=== PATIENT | female | born 1970 | race Caucasian/White ===

== ENCOUNTER 2016-09-05 13:26 | Emergency (ER) | payer MEDICAID ==
[~2016-09-05] VITALS: Ht 165.1 cm; Wt 99.0 kg
[~2016-09-05 13:26] MED LIST: denies meds
[2016-09-05 13:45] VITALS: Ht 165.1 cm; Wt 99.0 kg
[2016-09-05] MEDS ORDERED: KETOROLAC 60 MG INJ IM STA (15:23)
--- NOTE | 2016-09-05 16:54 | RADRPT ---
PROCEDURE: XR Cervical Spine. CLINICAL INDICATION: Neck pain TECHNIQUE: AP, lateral, and odontoid views of the cervical spine were obtained. COMPARISON: None available FINDINGS: Mineralization is within normal limits. No fracture or osseous lesion is identified. Vertebral bod ies are normal in height. Cervical lordosis is preserved. No vertebral subluxation is seen. Inter vertebral discs are normal in height. Facet joints appear maintained. Prevertebral soft tissues, p redental space and atlantoaxial joint are unremarkable. RPTAT:HJJR IMPRESSION: Normal three-view cervical spine series. Physician Avery Date Time Electronically viewed and signed by Physician Avery on 09/05/2016 16:54 /
--- NOTE | 2016-09-05 16:55 | RADRPT ---
PROCEDURE: XR left shoulder. CLINICAL INDICATION: Left shoulder pain TECHNIQUE: Three views of the left shoulder were performed. COMPARISON: None available. FINDINGS: There is normal mineralization and alignment. No fracture or osseous lesion is identified. The joint spaces are preserved. Soft tissue calcification adjacent to the humeral head is approximately 2 cm in greatest dimension and is concerning for a calcific bursitis or possibly calcific tendinosis RPTAT:HJJR IMPRESSION: Calcific bursitis or tendinosis of the left shoulder without evidence of osseous abnormality. Physician Avery Date Time Electronically viewed and signed by Physician Avery on 09/05/2016 16:55 /
[2016-09-05] MEDS ORDERED: IBUP-1542 PO (16:58)
[2016-09-05] MEDS ORDERED: TRAM50TA2 PO (16:58)
--- NOTE | 2016-09-05 17:04 | ERD ---
ER Documentation Chief Complaint Date/Time DATE: 09/05/16 TIME: 17:02 Chief Complaint LEFT SHOULDER PAIN RADIATING DOWN ARM X 3 DAYS, DENIES TRAUMA AND FALL HPI This 45 year female complains of left shoulder pain worsening over last 3 days. She has a history of intermittent left shoulder pain weakness, bowel or bladder incontinence, headaches or fevers. Denies chest pain or shortness of breath. ROS All systems reviewed and are negative except as per history of present illness. Medications Home Meds Active Scripts Tramadol HCl (Tramadol HCl) 50 Mg Tablet, 50 MG PO Q4 Y for PAIN, #20 TAB Prov:ZULAY CARDOSO MD 09/05/16 Ibuprofen* (Motrin*) 600 Mg Tab, 600 MG PO Q6, #30 TAB Prov:ZULAY CARDOSO MD 09/05/16 Reported Medications [denies meds] No Conflict Check 10/04/10 Allergies Allergies: Coded Allergies: No Known Allergies (Verified Allergy, Mild, 10/06/10) PMhx/Soc History of Surgery: No Anesthesia Reaction: No Hx Neurological Disorder: No Hx Respiratory Disorders: No Hx Cardiac Disorders: No Hx Psychiatric Problems: No Hx Miscellaneous Medical Probl: No Hx Alcohol Use: No Hx Substance Use: No Hx Tobacco Use: No Physical Exam Vitals Vital Signs Date Time Temp Pulse Resp B/P Pulse Ox O2 Delivery O2 Flow Rate FiO2 09/05/16 13:45 98.8 78 18 140/60 100 Physical Exam Const: [] Alert, [id number]. Head: Atraumatic Eyes: Normal Conjunctiva ENT: Normal External Ears, Nose and Mouth. Neck: Full range of motion..~ No meningismus.. Mild cervical paraspinous muscles. No midline tenderness or deformities Resp: Clear to auscultation bilaterally Cardio: Regular rate and rhythm, no murmurs Abd: Soft, non tender, non distended. Normal bowel sounds Skin: No petechiae or rashes Back: No midline or flank tenderness Ext: No cyanosis, or edema. There is tenderness of the left rotator cuff without erythema, warmth, deformities. Left upper extremity is neurovascular intact. Pulses are 2+ distally Neur: Awake and alert Psych: Normal Mood and Affect Results 24 hrs Current Medications Medications (Trade) Dose Ordered Sig/Elbert Route PRN Reason Start Time Stop Time Status Last Admin Dose Admin Ketorolac Tromethamine (Toradol) 60 mg ONCE STAT IM 09/05/16 15:23 09/05/16 15:24 DC 09/05/16 15:51 Procedures/MDM X-ray C spine 3V Interpreted by me: Bones: [No fracture] Joints: No dislocation Foreign body: None. Impression have a normal cervical spine x-ray X-ray left shoulder 3V Interpreted by me: Bones: No fracture Joints: No dislocation Foreign body: None. Patient has some calcific tendinitis of the left shoulder without fracture dislocation. Patient was given Toradol 60 mg IM. Patient has left shoulder pain rating to her left hand. She may have cervical radicular pain but has signs of calcific tendinitis on her shoulder x-ray. She will treated with ibuprofen and tramadol , instructions for ice and range of motion to prevent stiffness. Patient is advised to follow-up with orthopedist for further evaluation management. She should return for fevers, chest pain, shortness of breath, new worsening symptoms. The patient was stable with no new complaints during the ER course. Clinically, there is no current evidence to suggest meningitis, sepsis, acute abdomen, pneumonia, acute coronary syndrome, pulmonary embolism, or any other emergent condition appearing to require further evaluation or hospitalization. The patient should certainly return for any new or worsening symptoms per the aftercare instructions. They should otherwise follow-up with her primary care doctor for reevaluation this week. Departure Diagnosis: Primary Impression: Shoulder pain Laterality: left Chronicity: acute Qualified Code: M25.512 - Acute pain of left shoulder Condition: Stable Patient Instructions: Tendonitis, Shoulder Pain (Uncertain Cause) Additional Instructions: X RAY DICE TIENE TENDONITIS. PONE HIELO Y USE STEVENSON BRAZAO. RECOMIENDO UN ORTHOPEDICO PARA MAD [facility]. ZULAY CARDOSO MD Sep 05, 2016 17:04
[2016-09-05 17:18] VITALS: BP 135/62; PULSE 75; RESP 18; TEMP 98.8
== END 2016-09-05 17:15 | disposition home or self-care (01) ==
LOC: FTE 13:26
DX: M25.512 Pain in left shoulder (principal)
CPT/HCPCS: 72040; 73030; 96372; J1885; Z7502